=== PATIENT | male | born 1970 | race Hispanic/Latino ===

== ENCOUNTER 2019-12-27 15:24 | Observation (INO) | payer BC ==
[2019-12-27 16:22] LABS: Absolute Lymphocytes (CBC) 3.9 K/uL (0.7-4.9); Basophils % 1.2 % (0-1.3); Hematocrit 52.1 % (39.6-49.0); Lymphocytes % 26.8 % (15.3-44.8); MPV 10.2 fL (7.6-11.3); RBC Red Blood Cell Count 5.89 M/uL (4.33-5.43)
[2019-12-27 16:29] LABS: Protime INR 1.04
--- NOTE | 2019-12-27 16:40 | RAD REPORT ---
EXAM DESCRIPTION: CT - Head Brain Wo Cont - 12/27/2019 4:30 pm CLINICAL HISTORY: BAIRES, blurred vision Headache hypertension. COMPARISON: No comparisons TECHNIQUE: All CT scans are performed using dose optimization technique as appropriate and may inclu de automated exposure control or mA/KV adjustment according to patient size. FINDINGS: No intracranial hemorrhage, hydrocephalus or extra-axial fluid collection.No areas of brai n edema or evidence of midline shift. Chronic opacification left maxillary antrum. Small mucous retention cyst sphenoid sinus also seen. Th e calvarium is intact. IMPRESSION: No acute intracranial abnormality.
[2019-12-27 16:43] LABS: ALT/SGPT 33 U/L (12-78); AST/SGOT 18 U/L (15-37); Alkaline Phosphatase 75 U/L (45-117); BUN Blood Urea Nitrogen 10 mg/dL (7-18); Bicarbonate 26 mmol/L (21-32); Bilirubin Direct 0.2 mg/dL (0-0.2); Bilirubin Total 0.4 mg/dL (0.2-1.0); Glucose Level 168 mg/dL (74-106); Magnesium 1.8 mg/dL (1.8-2.4); NT PRO-BNP 22 pg/mL (<125); Sodium Level 137 mmol/L (136-145); Troponin (Emerg Dept Use Only) < 0.02 ng/mL (0.0-0.045)
--- NOTE | 2019-12-27 16:44 | RAD REPORT ---
EXAM DESCRIPTION: RAD - Chest Single View - 12/27/2019 4:35 pm CLINICAL HISTORY: CHEST PAIN Chest pain. COMPARISON: No comparisons FINDINGS: Portable technique limits examination quality. The lungs are grossly clear. The heart is normal in size. No displaced fractures. IMPRESSION: No acute intrathoracic process suspected.
--- NOTE | 2019-12-27 17:35 | ER ---
Nurse's Notes [facility] Name: Gaurav Rubin Age: 49 yrs Sex: Male : 1970 Arrival Date: 12/27/2019 Time: 15:25 Bed 19 Private MD: Diagnosis: Diplopia Presentation: 12/26 15:30 Chief complaint: Spouse and/or significant other states: c/o nausea today and double iw vision X 3 days, BP has been high today, denies headache, mild dizziness. Coronavirus screen: The patient has NOT traveled to [place] in the past 14 days. Proceed with normal triage procedures. Ebola Screen: Patient negative for fever greater than or equal to 101.5 degrees Fahrenheit, and additional compatible Ebola Virus Disease symptoms Patient denies exposure to infectious person. Patient denies travel to an Ebola-affected area in the 21 days before illness onset. No symptoms or risks identified at this time. Initial Sepsis Screen: Does the patient meet any 2 criteria? No. Patient's initial sepsis screen is negative. Does the patient have a suspected source of infection? No. Patient's initial sepsis screen is negative. Risk Assessment: Do you want to hurt yourself or someone else? Patient reports no desire to harm self or others. 15:30 Method Of Arrival: Ambulatory iw 15:30 Acuity: ROSE 3 iw 16:00 Onset of symptoms was December 26, 2019. jl7 Triage Assessment: 16:00 General: Appears in no apparent distress. uncomfortable. jl7 Historical: - Allergies: 15:32 No Known Allergies; iw - Home Meds: 15:32 simvastatin 20 mg Oral tab 1 tab once daily [Active]; metformin 500 mg Oral Tb24 1 tab iw 2 times per day [Active]; gabapentin 600 mg oral tab 1 tab 3 times per day [Active]; - PMHx: 15:32 Diabetes - NIDDM; Hyperlipidemia; iw - PSHx: 15:32 None; iw - Immunization history:: Adult Immunizations not up to date. - Social history:: Smoking status: Patient reports the use of cigarette tobacco products, Smoking status: Patient reports the use of cigarette tobacco products, smokes one pack cigarettes per day. Screenin:22 Abuse screen: Denies threats or abuse. Denies injuries from another. Nutritional ia1 screening: No deficits noted. Tuberculosis screening: No symptoms or risk factors identified. Fall Risk No fall in past 12 months (0 pts). No secondary diagnosis (0 pts). IV access (20 points). Ambulatory Aid- None/Bed Rest/Nurse Assist (0 pts). Gait- Normal/Bed Rest/Wheelchair (0 pts) Mental Status- Oriented to own ability (0 pts). Total Zamora Fall Scale indicates No Risk (0-24 pts). 18:00 The patient has not been NPO before screening. The patient is currently on the jl7 following diet: Regular The patient is alert, able to follow commands. The patient does not exhibit slurred or garbled speech The patient is not exhibiting difficulty speaking. The patient does not exhibit difficulty understanding words. The patient is able to swallow own secretions with no drooling or need for suction. Patient tolerated one teaspoon of water. No drooling, immediate coughing, gurgling, or clearing of the throat was noted. The patient tolerated 90mL of water. No drooling, immediate coughing, gurgling, or clearing of the throat was noted. The patient passed the bedside swallow screening. Oral medications may be given as ordered. Contact Physician for further diet orders. Provider notified of bedside swallow screening results: Ramesh NIEVES. Assessment: 16:22 General: Appears in no apparent distress. comfortable, Behavior is calm, cooperative, ia1 appropriate for age. Pain: Denies pain. Neuro: Level of Consciousness is awake, alert, obeys commands, Oriented to person, place, time, situation. Cardiovascular: Heart tones S1 S2 present Capillary refill < 3 seconds Patient's skin is warm and dry. Rhythm is regular. Respiratory: Airway is patent Respiratory effort is even, unlabored, Respiratory pattern is regular, symmetrical, Breath sounds are clear bilaterally. Derm: Skin is pink, warm \T\ dry. 17:00 Reassessment: Patient appears in no apparent distress at this time. No changes from jl7 previously documented assessment. Patient and/or family updated on plan of care and expected duration. Pain level reassessed. Patient is alert, oriented x 3, equal unlabored respirations, skin warm/dry/pink. 18:00 Reassessment: Patient appears in no apparent distress at this time. Patient and/or 7 family updated on plan of care and expected duration. Pain level reassessed. Patient is alert, oriented x 3, equal unlabored respirations, skin warm/dry/pink. 19:00 Reassessment: Patient appears in no apparent distress at this time. No changes from bb3 previously documented assessment. Patient and/or family updated on plan of care and expected duration. Pain level reassessed. Patient is alert, oriented x 3, equal unlabored respirations, skin warm/dry/pink. Patient denies pain at this time. General: Appears in no apparent distress. comfortable. Pain: Denies pain. 19:59 Reassessment: Patient appears in no apparent distress at this time. No changes from bb3 previously documented assessment. Patient and/or family updated on plan of care and expected duration. Pain level reassessed. Patient is alert, oriented x 3, equal unlabored respirations, skin warm/dry/pink. Patient denies pain at this time. Patient states symptoms have improved. General: Appears in no apparent distress. comfortable. Pain: Denies pain. Neuro: No deficits noted. EENT: No deficits noted. 20:09 Reassessment: report called to SILKE Farooq. bb3 Vital Signs: 15:30 BP 148 / 88; Pulse 86; Resp 16; Temp 98.0; Pulse Ox 96% on R/A; Weight 98.88 kg; Height iw 5 ft. 7 in. (170.18 cm); 19:55 BP 125 / 79; Pulse 72; Resp 16; Temp 98.3; Pulse Ox 96% ; bb3 15:30 Body Mass Index 34.14 (98.88 kg, 170.18 cm) iw Vitals: 19:55 Cardiac Rhythm Assessment Regular Sinus rhythm. bb3 ED Course: 15:25 Patient arrived in ED. as 15:32 Triage completed. iw 15:32 Arm band placed on. iw 15:41 Ramesh June PA is PHCP. jmm 15:41 Alejandro Holder MD is Attending Physician. jmm 15:56 Gurjit Cordero RN is Primary Nurse. jl7 16:15 Patient has correct armband on for positive identification. Bed in low position. Call ia1 light in reach. Side rails up X 1. 16:15 groundwater monitoring technician on. Pulse ox on. NIBP on. ia1 16:30 CT completed. Patient moved back from CT. mw3 16:30 Initial lab(s) drawn, by me, sent to lab. Inserted saline lock: 20 gauge in right jl7 antecubital area, using aseptic technique. Blood collected. 16:31 CT Head Brain wo Cont In Process Unspecified. EDMS 16:35 XRAY Chest (1 view) In Process Unspecified. EDMS 17:33 Verabeata Everette is Hospitalizing Provider. m 18:45 No provider procedures requiring assistance completed. Patient admitted, IV remains in jl7 place. intact, No redness/swelling at site. 19:38 Primary Nurse role handed off by Gurjit Cordero RN jl7 Administered Medications: 16:17 Drug: NS 0.9% 1000 ml Route: IV; Rate: 1 bolus; Site: right antecubital; jl7 17:20 Follow up: Response: No adverse reaction; IV Status: Completed infusion; IV Intake: jl7 1000ml 17:42 Follow up: Response: No adverse reaction; IV Status: Completed infusion; IV Intake: ia1 1000ml 17:57 Drug: Aspirin Chewable Tablet 324 mg Route: PO; jl7 17:58 Follow up: Response: No adverse reaction jl7 18:30 Follow up: Response: No adverse reaction ia1 17:57 Drug: foLIC Acid 1 mg Route: IVPB; Site: right antecubital; jl7 18:30 Follow up: Response: No adverse reaction; IV Status: Completed infusion ia1 Intake: 17:20 IV: 1000ml; Total: 1000ml. jl7 17:42 IV: 1000ml; Total: 2000ml. ia1 Outcome: 17:33 Decision to Hospitalize by Provider. [facility] 19:30 Attestation : I agree with everything documented by Cynthia, Student Nurse. [facility] 20:46 Admitted to Med/surg accompanied by tech, via wheelchair, with chart. mg2 20:46 Condition: improved 20:46 Instructed on the need for admit, Demonstrated understanding of instructions. 20:47 Patient left the ED. mg2 Signatures: Dispatcher [employer] EDMS Ramesh June PA PA jmm Martinez, Amelia as Williams, Irene, RN RN iw Gurjit Cordero RN RN jl7 Alex Milian RN RN mg2 Crystal [place] 3 Yas Lilly 3 Cynthia Washburn ia1 Corrections: (The following items were deleted from the chart) 16:31 16:22 Neuro: Level of Consciousness is awake, alert, obeys commands, Oriented to ia1 person, place, time, situation, ia1 16:34 16:22 Patient has correct armband on for positive identification. Bed in low position. ia1 Call light in reach. Side rails up X 1. ia1 16:34 16:22 groundwater monitoring technician on. Pulse ox on. NIBP on. at bedside. ia1 ia1 17:58 17:57 Response: No adverse reaction; IV Status: Completed infusion; IV Intake: 1000ml jl7 jl7
--- NOTE | 2019-12-27 17:35 | EDPHYS ---
Physician Documentation [facility] Name: Gaurav Rubin Age: 49 yrs Sex: Male : 1970 Arrival Date: 12/27/2019 Time: 15:25 Bed 19 Private MD: ED Physician Alejandro Holder HPI: 12/26 15:43 This 49 yrs old Male presents to ER via Ambulatory with complaints of High jmm Blood Pressure, Blurred Vision. 15:43 Onset: The symptoms/episode began/occurred gradually, 3 day(s) ago. Associated signs jmm and symptoms: Pertinent positives: double vision, Pertinent negatives: fever. This is a 49 year old male with a history of dm, hlp that presents to the ED with complaints of headache, double vision, increased blood pressure for the past 3 days. Patient denies chest pain shortness of breath. Denies weakness. . Historical: - Allergies: 15:32 No Known Allergies; iw - Home Meds: 15:32 simvastatin 20 mg Oral tab 1 tab once daily [Active]; metformin 500 mg Oral Tb24 1 tab iw 2 times per day [Active]; gabapentin 600 mg oral tab 1 tab 3 times per day [Active]; - PMHx: 15:32 Diabetes - NIDDM; Hyperlipidemia; iw - PSHx: 15:32 None; iw - Immunization history:: Adult Immunizations not up to date. - Social history:: Smoking status: Patient reports the use of cigarette tobacco products, Smoking status: Patient reports the use of cigarette tobacco products, smokes one pack cigarettes per day. ROS: 15:43 Constitutional: Negative for fever, chills, and weight loss, Cardiovascular: Negative jmm for chest pain, palpitations, and edema, Respiratory: Negative for shortness of breath, cough, wheezing, and pleuritic chest pain. 15:43 Eyes: Positive for blurry vision. 15:43 Neuro: Positive for headache. 15:43 All other systems are negative. Exam: 15:43 Constitutional: This is a well developed, well nourished patient who is awake, alert, jmm and in no acute distress. Head/Face: atraumatic. Eyes: EOMI, no conjunctival erythema appreciated 15:43 ENT: Moist Mucus Membranes Neck: Trachea midline, Supple Chest/axilla: Normal chest wall appearance and motion. 15:43 Back: Normal ROM Skin: General appearance color normal MS/ Extremity: Moves all extremities, no obvious deformities appreciated, no edema noted to the lower extremities Neuro: Awake and alert, normal gait Psych: Behavior is normal, Mood is normal, Patient is cooperative and pleasant 15:43 Eyes: Visual rios: are intact. 15:43 Cardiovascular: Rate: normal, Rhythm: regular, Pulses: no pulse deficits are appreciated. 15:43 Respiratory: the patient does not display signs of respiratory distress, Respirations: normal, Breath sounds: are clear throughout. 15:43 Abdomen/GI: Inspection: abdomen appears normal, Bowel sounds: normal, Palpation: abdomen is soft and non-tender. Vital Signs: 15:30 BP 148 / 88; Pulse 86; Resp 16; Temp 98.0; Pulse Ox 96% on R/A; Weight 98.88 kg; Height iw 5 ft. 7 in. (170.18 cm); 19:55 BP 125 / 79; Pulse 72; Resp 16; Temp 98.3; Pulse Ox 96% ; bb3 15:30 Body Mass Index 34.14 (98.88 kg, 170.18 cm) iw MDM: 15:43 Patient medically screened. [facility] 17:32 Data reviewed: vital signs, nurses notes. Counseling: I had a detailed discussion with [facility] the patient and/or guardian regarding: the historical points, exam findings, and any diagnostic results supporting the discharge/admit diagnosis, lab results, radiology results, the need for further work-up and treatment in the hospital. ED course: I discussed the patient with Dr. Shetty whom advised to admit the patient for further work up. I discussed the patient with Dr. Coffey whom accepted the admission. . 03 15:49 Order name: Basic Metabolic Panel; Complete Time: 16:46 [facility] 12/26 15:49 Order name: CBC with Diff; Complete Time: 16:37 [facility] 12/26 15:49 Order name: LFT's; Complete Time: 16:46 [facility] 12/26 15:49 Order name: Magnesium; Complete Time: 16:46 [facility] 12/26 15:49 Order name: NT PRO-BNP; Complete Time: 16:46 [facility] 12/26 15:49 Order name: PT-INR; Complete Time: 16:37 [facility] 12/26 15:49 Order name: Troponin (emerg Dept Use Only); Complete Time: 16:46 [facility] 12/26 15:49 Order name: XRAY Chest (1 view); Complete Time: 16:46 [facility] 12/26 15:49 Order name: EKG; Complete Time: 15:50 [facility] 12/26 15:49 Order name: Cardiac monitoring; Complete Time: 16:16 [facility] 12/26 15:49 Order name: CT Head Brain wo Cont; Complete Time: 16:46 [facility] 12/26 15:49 Order name: EKG - Nurse/Tech; Complete Time: 16:17 [facility] 12/26 15:49 Order name: IV Saline Lock; Complete Time: 16:16 [facility] 12/26 15:49 Order name: Labs collected and sent; Complete Time: 16:16 [facility] 12/26 15:49 Order name: O2 Per Protocol; Complete Time: 16:16 [facility] 12/26 15:49 Order name: O2 Sat Monitoring; Complete Time: 16:16 jm Administered Medications: 16:17 Drug: NS 0.9% 1000 ml Route: IV; Rate: 1 bolus; Site: right antecubital; jl7 17:20 Follow up: Response: No adverse reaction; IV Status: Completed infusion; IV Intake: jl7 1000ml 17:42 Follow up: Response: No adverse reaction; IV Status: Completed infusion; IV Intake: ia1 1000ml 17:57 Drug: Aspirin Chewable Tablet 324 mg Route: PO; jl7 17:58 Follow up: Response: No adverse reaction jl7 18:30 Follow up: Response: No adverse reaction ia1 17:57 Drug: foLIC Acid 1 mg Route: IVPB; Site: right antecubital; jl7 18:30 Follow up: Response: No adverse reaction; IV Status: Completed infusion ia1 Disposition: 12/27 07:24 Co-signature as Attending Physician, Alejandro Holder MD I agree with the assessment and audra plan of care. Disposition: 12/27/19 17:33 Hospitalization ordered by Everette Coffey for Observation. Preliminary diagnosis is Diplopia. - Bed requested for Telemetry/MedSurg (observation). - Status is Observation. mg2 - Condition is Stable. - Problem is new. - Symptoms are unchanged. Signatures: Dispatcher [employer] EDLinda Clarke RN RN mw Anderson, Corey, MD MD cha Mickail, Joel, PA PA [facility] Ailyn Thibodeaux, RN RN iw Lidia Carson ms Gurjit Cordero, RN RN jl7 Alex Milian, RN RN mg2 Cynthia Washburn1 Corrections: (The following items were deleted from the chart) 12/26 18:28 17:33 Hospitalization Ordered by Everette Coffey for Observation. Preliminary diagnosis ms is Diplopia. Bed requested for Telemetry/MedSurg (observation). Status is Observation. Condition is Stable. Problem is new. Symptoms are unchanged. jmm 19:17 18:28 12/27/2019 17:33 Hospitalization Ordered by Everette Coffey for Observation. mw Preliminary diagnosis is Diplopia. Bed requested for [facility] ER HOLD. Status is Observation. Condition is Stable. Problem is new. Symptoms are unchanged. ms 20:47 19:17 12/27/2019 17:33 Hospitalization Ordered by Everette Coffey for Observation. mg2 Preliminary diagnosis is Diplopia. Bed requested for Telemetry/MedSurg (observation). Status is Observation. Condition is Stable. Problem is new. Symptoms are unchanged. mw
[2019-12-27] MEDS ORDERED: ASPIRIN 81 MG CHEWABLE TABLET ONE (17:56)
[2019-12-27] MEDS ORDERED: FOLIC ACID 5 MG/ML VIAL ONE (17:57)
--- NOTE | 2019-12-27 18:08 | P.HP ---
Certification for Inpatient Patient admitted to: Observation With expected LOS: <2 Midnights Practitioner: I am a practitioner with admitting privileges, knowledge of patient current condition, hospital course, and medical plan of care. Services: Services provided to patient in accordance with Admission requirements found in Title 42 Section 412.3 of the Code of Federal Regulations Patient History Date of Service: 12/27/19 Reason for admission: Double vision History of Present Illness: 49-year-old gentleman with a history of hypertension and diabetes presented emergency department with a complaint of diplopia and difficulty focusing on object. He stated his symptoms started this morning. He reports having headache last night. He also reports elevated blood pressure. His systolic blood pressure was [address] head is negative for acute disease. There is a concern for acute stroke. Patient is hospitalized for further evaluation. - Past Medical/Surgical History Diabetic: Yes -: DM type 2 -: Hypertension -: History of cervical vertebral fracture. - Family History Family History: Reviewed- Non-Contributory - Social History Alcohol use: No CD- Drugs: No Caffeine use: No Place of Residence: Home Review of Systems Other: Except as documented, all other systems reviewed and negative. Physical Examination - Physical Exam General: Alert, In no apparent distress, Oriented x3 HEENT: PERRLA, Mucous membr. moist/pink, Sclerae nonicteric Neck: Supple, 2+ carotid pulse no bruit, JVD not distended Respiratory: Clear to auscultation bilaterally, Normal air movement Cardiovascular: No edema, Normal pulses, Regular rate/rhythm, Normal S1 S2, No murmurs Capillary refill: <2 Seconds Gastrointestinal: Normal bowel sounds, Soft and benign, Non-distended, No tenderness Musculoskeletal: No swelling, No erythema Integumentary: No rashes, No erythema Neurological: Normal speech, Normal strength at 5/5 x4 extr, Cranial nerves 3- 12 intact - Studies Laboratory Data (last 24 hrs) 12/27/19 16:10: PT 12.2, INR 1.04 12/27/19 16:10: WBC 14.5 H, Hgb 17.3, Hct 52.1 H, Plt Count 245 12/27/19 16:10: Sodium 137, Potassium 4.0, BUN 10, Creatinine 1.03, Glucose 168 H, Magnesium 1.8, Total Bilirubin 0.4, AST 18, ALT 33, Alkaline Phosphatase 75 Assessment and Plan - Problems (Diagnosis) (1) Diplopia Current Visit: Yes Status: Acute (2) DM type 2 (diabetes mellitus, type 2) Current Visit: Yes Status: Acute (3) Hypertension Current Visit: Yes Status: Acute - Plan Placed under observation. Obtain MRI of the brain. Check lipid profile Obtain hemoglobin A1c. Obtain echocardiogram. Consult to neurology-Dr. Shetty Hold metformin. Blood sugar control with insulin sliding scale. - Advance Directives Does patient have a Living Will: No Does patient have a Durable POA for Healthcare: No
[2019-12-27] MEDS ORDERED: ACETAMINOPHEN 500 MG TAB PO PRN (21:28)
[2019-12-27] MEDS ORDERED: ATORVASTATIN 20 MG TAB PO SCH (21:28)
[2019-12-27] MEDS ORDERED: ONDANSETRON 4 MG/2 ML VIAL IV PRN (21:28)
[2019-12-27] MEDS ORDERED: NA CHLORIDE 0.9% 1,000 ML IV SCH (21:28)
[2019-12-27] MEDS: GABAPENTIN 300 MG CAP PO SCH (22:07)
[2019-12-27] MEDS: INSULIN -REGULAR HUMAN 50 UNIT/0.5 ML ML SQ SCH (22:34)
[2019-12-27 22:57] VITALS: BMI 34.1
[2019-12-28 03:26] LABS: Absolute Lymphocytes (CBC) 5.3 K/uL (0.7-4.9); Basophils % 0.8 % (0-1.3); Hematocrit 48.1 % (39.6-49.0); Lymphocytes % 36.7 % (15.3-44.8); MPV 10.4 fL (7.6-11.3); RBC Red Blood Cell Count 5.48 M/uL (4.33-5.43)
[2019-12-28 03:44] LABS: Phosphorus 3.2 mg/dL (2.5-4.9); Potassium 4.2 mmol/L (3.5-5.1); Thyroid Stimulating Hormone 1.67 uIU/mL (0.360-3.740)
[2019-12-28] MEDS ORDERED: ENOXAPARIN 40 MG/0.4 ML SQ SCH (09:00)
[2019-12-28] MEDS ORDERED: ASPIRIN EC 81 MG TAB PO SCH (09:00)
[2019-12-28] MEDS: INSULIN -REGULAR HUMAN 50 UNIT/0.5 ML ML SQ SCH ×2 (09:18→12:53)
[2019-12-28] MEDS: GABAPENTIN 300 MG CAP PO SCH ×2 (09:19→12:54)
--- NOTE | 2019-12-28 09:32 | RAD REPORT ---
EXAM DESCRIPTION: MRI - Brain Wo Cont - 12/28/2019 8:51 am CLINICAL HISTORY: DIPLOPIA Headache, drowsiness COMPARISON: MRA Head Wo Cont dated 12/28/2019; MRA Neck W/Wo Cont dated 12/28/2019 TECHNIQUE: Multi-sequence, multiplanar MR imaging of the brain was performed without contrast. FINDINGS: No intracranial hemorrhage, hydrocephalus or extra-axial fluid collections. No edema or sh ift of midline structures. No findings to suspect brain mass. DWI is negative for acute CVA. Midline structures are normally formed. Moderate polypoid mucosal thickening is seen involving the maxillary antra, left ethmoid air cell and sphenoid sinus. No pathologic post-contrast enhancement seen to suggest tumor or infection. IMPRESSION: No acute or aggressive intracranial abnormality. No acute CVA is present. Moderate polypoid mucosal thickening of the paranasal sinuses.
--- NOTE | 2019-12-28 09:43 | RAD REPORT ---
EXAM DESCRIPTION: MRI - MRA Head Wo Cont - 12/28/2019 8:51 am CLINICAL HISTORY: Diplopia CVA COMPARISON: Head Brain Wo Cont dated 12/27/2019 FINDINGS: 3D noncontrast [id number] MR angiography of the [place] was performed. No aneurysm, flow-limiting stenosis or vascular malformation is seen. Forward flow seen in left-sided dominant vertebral arteries. The visualized dural venous sinuses appear patent. IMPRESSION: No significant flow abnormality of the [place] is identified.
--- NOTE | 2019-12-28 09:49 | RAD REPORT ---
EXAM DESCRIPTION: MRI - MRA Neck W/Wo Cont - 12/28/2019 8:51 am CLINICAL HISTORY: DIPLOPIA Headache, drowsiness COMPARISON: No comparisons FINDINGS: Contrast enhance 2D [id number] MR angiography of the neck vessels was performed. A left aortic arch is noted with normal branching pattern of the great vessels. Both subclavian arteries and common carotid arteries are widely patent. Both internal carotid arteries are widely patent. No stenosis is present. Antegrade flow is seen in b oth vertebral arteries, greater on the left. IMPRESSION: No significant flow abnormality of the neck vessels.
--- NOTE | 2019-12-28 09:52 | RAD REPORT ---
EXAM DESCRIPTION: US - CP - 12/28/2019 9:01 am CLINICAL HISTORY: Diplopia Headache, drowsiness COMPARISON: No comparisons TECHNIQUE: Real-time sonographic evaluation of both carotid systems was performed. Doppler interroga tion was performed with waveform tracing bilaterally. FINDINGS: Normal high resistance waveforms are noted in both external carotid arteries. The common c arotid arteries and internal carotid arteries show normal low resistance waveforms. No significant plaque formation is seen. Peak systolic and end diastolic velocity values and the ICA/ CCA ratios are in the non-hemodynamically significant range. Antegrade flow seen in both vertebral arteries. IMPRESSION: No significant atherosclerotic changes noted. No evidence of a hemodynamically significant stenosis.
[2019-12-28] MEDS ORDERED: INFLUENZA VACCINE (for 3y+) 0.5 ML DOSE IMVAC ONE (10:00)
[2019-12-28 11:03] VITALS: O2SAT 98
--- NOTE | 2019-12-28 11:27 | ECHO ---
HEIGHT: 5 ft 7 in WEIGHT: 218 lb 0 oz DATE OF STUDY: 12/28/[address]: francine preston 2-DIMENSIONAL: YES M.MODE: YES DOPPLER: YES COLOR FLOW: YES TDS: NO PORTABLE: NO DEFINITY: NO BUBBLE STUDY: NO DIAGNOSIS: STROKE CARDIAC HISTORY: CATHERIZATION: NO SURGERY: NO PROSTHETIC VALVE: NO PACEMAKER: NO MEASUREMENTS (cm) DIASTOLIC (NORMALS) SYSTOLIC (NORMALS) IVSd 0.9 (0.6-1.2) LA Diam 3.0 (1.9-4.0) LVEF 65% LVIDd 4.4 (3.5-5.7) LVIDs 2.9 (2.0-3.5) %FS 35% LVPWd 1.0 (0.6-1.2) Ao Diam 3.2 (2.0-3.7) 2 DIMENSIONAL ASSESSMENT: RIGHT ATRIUM: NORMAL LEFT ATRIUM: NORMAL RIGHT VENTRICLE: NORMAL LEFT VENTRICLE: NORMAL TRICUSPID VALVE: NORMAL MITRAL VALVE: NORMAL PULMONIC VALVE: NORMAL AORTIC VALVE: NORMAL PERICARDIAL EFFUSION: NONE AORTIC ROOT: NORMAL LEFT VENTRICULAR WALL MOTION: NORMAL DOPPLER/COLOR FLOW: NORMAL COMMENTS: NORMAL 2D ECHOCARDIOGRAM WITH DOPPLER. TECHNOLOGIST: Jeanette WILL
--- NOTE | 2019-12-28 15:34 | EKG ---
Test Date: 2019-12-27 Test Time: 16:25:29 Brick Siding Applicator: NAVI MEASUREMENT RESULTS: Intervals: Rate: 77 MI: 150 QRSD: 84 QT: 352 QTc: 398 [place]: P: 53 MI: 150 QRS: 72 T: 47 INTERPRETIVE STATEMENTS: Normal sinus rhythm Normal ECG No previous ECG available for comparison Electronically Signed On 12-28-19 15:33:30 [employer]ORTS JOURNALIST by Abhishek Perez
[2019-12-28 15:36] VITALS: BP 139/75; TEMP 97.6
--- NOTE | 2019-12-28 22:02 | CON ---
Reason For Consultation: Consultation called because of double vision. History Of Present Illness: Mr. Rubin is a 49-year-old patient with uncontrolled diabetes mellitus, hypertension who comes in after having double vision. Patient and his reported on his symptoms. His symptoms began yesterday morning and developed over about 4 hours. Double vision was looking t owards the right and he had 1 object slightly above and to the right of the other when looking to the right. It resolved when looking to the left. Regarding his diabetes, his blood sugars were in the 300s and uncontrolled. The patient did check his blood pressure and noted systolics around 150s, at the emergency room it was 148. Head CT scan is unremarkable. He was admitted for stroke workup and brain MRI revealed no acute ischemic or hemorrhagic stroke. MRA of the brain showed no significant a bnormalities in the [place]. Echocardiogram of the heart shows a normal study without any s ignificant abnormalities. The patient was put on aspirin 160 mg daily, Lipitor 40 mg daily, and Love nox 40 mg subcu for DVT prophylaxis. At the time of my evaluation, the patient still had right sided diplopia and had not resolved. He did not have any face, arm, or leg numbness or weakness and no ot her associated features. Past Medical History: Diabetes mellitus type 2, hypertension, and cervical vertebral fracture. Family History: Noncontributory. Social History: The patient admits to very poor diet and does not pay attention to his blood sugars. Medications: As indicated aspirin 160 mg daily, Lipitor 40 mg at bedtime, gabapentin 600 mg 3 times daily, Zofran as needed. Review of Systems: Aside from mentioned, he denies any recent fevers, chills, nausea, vomiting, myalgias, arthralgias, r betina, headache, weight change, or psychiatric issues. Physical Examination: Vital Signs: Blood pressure 139/75, pulse 82, respiratory rate 18, temperature 98.1, oxygen saturati on 96% on room air. Weight 280 pounds, height 5 feet 7 inches, BMI 34. General: Mr. Rubin is resting in bed. He is in no acute distress. HEENT: He is normocephalic, atraumatic. Sclerae nonicteric. Oropharynx pink and moist. Neck: Supple. Chest: Clear. Heart: Regular. Extremities: Show no edema, cyanosis, or clubbing. Neurologic: He is alert and oriented to person, person, place, situation, and time. His cranial ner ves remarkable for a left medial rectus palsy. He does have some excess tearing in the right eye. H e has no numbness on distributions V1, V2, V3 bilaterally. His face is symmetric with equal excursio ns on smiling. Tongue and palate are in midline. Shoulder shrug 5/5. Motor examination in upper an d lower extremities 5/5 proximally and distally. Sensory exam intact in upper and lower extremities bilaterally. Reflexes 2+ in the upper and lower extremities. Coordination intact in the upper and l ower extremities. Gait normal stance right arm swing. Laboratory Studies: Complete blood count with differential shows slightly elevated white blood cell count of 14.4. Neutrophils are normal. Hemoglobin 15.8. Coagulation panel is unremarkable. Chemis tries remarkable for blood glucose ranging from 154 to 253, otherwise electrolytes are normal. Calci um slightly low at 8.3. Liver function studies are normal. LDL cholesterol of 20, HDL cholesterol o f 28. TSH 1.67, triglycerides elevated 253. His electrocardiogram shows normal sinus rhythm and a n ormal study. His chest x-ray shows no acute intrathoracic processes. Carotid artery ultrasound show s no evidence of hemodynamically significant stenosis. Assessment: Mr. 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 Plan: 1.Aspirin 81 mg daily. 2.Lipitor 40 mg at bedtime. 3.Continue gabapentin for his diabetic neuropathy symptoms 600 mg 3 times daily. 4.Patient is advised to work on a weight loss plan to lose around 40 pounds and to do regular brisk aerobic exercise for 30 minutes daily. 5.He should drink 8 glasses of water daily, cut back sugary carbonated caffeinated drinks. 6.After discharge, follow up with Dr. Shetty in clinic in 1 month. CM/EWA Voice ID: [id number] Report ID: [id number]
--- NOTE | 2019-12-28 23:41 | DS ---
Date of Discharge: 12/28/2019 Consultants: Dr. Shetty with Neurology. 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 2.Diabetes mellitus type 2, [id number] with hyperglycemia. 3.Essential hypertension, stable. 4.Mixed hyperlipidemia, continue statin. 5.Obesity, BMI 34. Hospital Course: Patient is a 49-year-old male with history of diabetes, hypertension, hyperlipidemi a, comes in with diplopia. Patient's head CT scan was negative. He was admitted to the hospital for further evaluation. Stroke workup was initiated due to possible cerebrovascular accident. Given hi s history and risk factors, triglyceride levels were elevated to 53, HDL was low at 28. Patient is o bese, diabetic, with high cholesterol. He was counseled regarding his diet and exercise regimen. Th e patient did have a slightly elevated white blood cell count of 14,000. Imaging studies including M RI of the brain, MRA of the brain, and neck MRA were negative for any acute cerebrovascular accident or other abnormalities. Carotid artery ultrasound did not show any hemodynamically significant steno sis. Echocardiogram showed an EF of 65%. No abnormalities were seen. Dr. Shetty suspected this i s likely a diabetic ophthalmoplegia. Patient was recommended to continue with exercises for the eye to train the eye and to follow up with him in 1-2 weeks in his office. Overall, patient states his d iplopia was better. This has been ongoing for 4 days prior to hospital admission. Patient was then cleared for discharge, was sent home in a stable condition. Activity: As tolerated. Diet: Diabetic. Followup: Follow up with PCP in 2-3 days. Follow up with neurologist, Dr. Shetty in 1-2 weeks. R eturn to ER for worsening condition. Medications: As per medication reconciliation list. Patient to have a trial of exercise and diet pr ior to increasing his cholesterol medication dose. I have repeat lipid panel in 3 months for reasses sment. PCP can adjust his statin dose if necessary. Physical Examination: General: Awake, alert, and oriented, no acute distress, obese male. CV: S1, S2. Respiratory: Moving air well bilaterally. Abdomen: Abdomen is soft, nontender, nondistended. Positive bowel sounds. Extremities: No clubbing, cyanosis, edema. Neuro: No focal neurological deficit. Patient does have slight ptosis of the right eye. /EWA Voice ID: [id number] Report ID: [id number]
== END 2019-12-28 15:31 | disposition home or self-care (01) ==
LOC: ER 15:24 → ERHOLD 18:17 → 2ND 20:09
PROVIDERS: ADMIT Internal Medicine; ATTEND Family Medicine
DX: E11.39 Type 2 diabetes mellitus with other diabetic ophthalmic complication (principal); H49.00 Third [oculomotor] nerve palsy, unspecified eye; H53.2 Diplopia; I10 Essential (primary) hypertension; H49.9 Unspecified paralytic strabismus; E78.2 Mixed hyperlipidemia; E66.9 Obesity, unspecified; Z68.34 Body mass index [BMI] 34.0-34.9, adult
CPT/HCPCS: 96365; 96361; 93005; 93306; 85025 ×2; 80048 ×2; 36415; 83735 ×2; 84100; 85610; 80061; 82947 ×3; 80076; 84443; 84484 ×3; 83880; 70450; 71045; 93880; 70551; 70544; 70549; 97112; 97161; 94760 ×2; 99285; A9577; J1650; J7030; G0378 ×2